=== PATIENT | male | born 1965 | race American Indian/Alaskan Native ===

== ENCOUNTER 2017-06-01 08:24 | Outpatient (CLI) | payer BC ==
--- NOTE | 2017-06-01 09:23 | XRay Report ---
Bilateral knee: History: Bilateral knee pain. Findings: Narrowing of the medial and patellofemoral compartment right and left knee joint. More pronounced right knee joint. Sclerotic articular surfaces with osteophyte suggesting degenerative changes. No fracture. No soft tissue calcification Impression: Mild degenerative changes left knee with moderate degenerative changes right knee.
== END 2017-06-01 08:25 | disposition home or self-care (01) ==
LOC: SPVIMAG 08:24
PROVIDERS: ATTEND Orthopaedic Surgery
DX: M17.0 Bilateral primary osteoarthritis of knee (principal)